=== PATIENT | male | born 1980 | race Hispanic/Latino ===

== ENCOUNTER 2017-11-22 16:05 | Outpatient (CLI) | payer OTHER ==
--- NOTE | 2017-11-22 17:14 | RAD ---
LEFT SHOULDER RADIOGRAPHS THREE VIEWS: 11/22/17 PROVIDED CLINICAL HISTORY: Left shoulder pain. FINDINGS: There is no evidence for fracture or other acute osseous abnormality. Acromioclavicular joint osteoar throsis is noted. The glenohumeral relationship appears normal. The visualized left lung appears jeni r. IMPRESSION: Acromioclavicular joint osteoarthrosis. POS: [facility]
== END 2017-11-22 16:06 | disposition home or self-care (01) ==
LOC: RAD-FRANK 16:05
PROVIDERS: ATTEND Nurse Practitioner Family
DX: S49.92XA Unspecified injury of left shoulder and upper arm, initial encounter (principal); M19.012 Primary osteoarthritis, left shoulder

== ENCOUNTER 2022-11-27 20:30 | Emergency (ER) | payer SELFPAY ==
[~2022-11-27 20:30] MED LIST: Iopamidol-370 76% 500 ML MDV (1 ML CHARGE) ONE
[2022-11-27 21:47] LABS: #Basophils 0.1 thou/uL (0.0-0.2); #Eosinphils 0.1 thou/uL (0.0-0.7); #Monocytes 0.6 thou/uL (0.11-0.59); #Neutrophils 7.6 thou/uL (1.40-6.50); %Basophils 0.5 % (0.0-1.0); %Eosinophils 1.2 % (0.0-10.0); %Lymphocytes 23.5 % (21.0-51.0); %Monocytes 5.2 % (0.0-10.0); %Neutrophils 69.3 % (42.0-75.0); Hematocrit 42.1 % (42.0-52.0); Hemoglobin 13.8 g/dL (14.0-18.0); Mean Corpuscular HGB CONC 32.8 g/dL (32.0-36.0); Mean Corpuscular Hemoglobin 30.5 pg (27.0-31.0); Mean Corpuscular Volume 93.1 fl (78.0-98.0); Mean Platelet Volume 10.1 fL (7.4-10.4); Platelet Count 317 10x3/uL (130-400); RBC Distribution Width 13.4 % (11.5-14.5); Red Blood Cell (RBC) Count 4.52 mill/uL (4.70-6.10)
[2022-11-27 22:05] LABS: PTT 27.1 sec (22.9-36.1); Prothrombin Time 13.8 sec (12.0-14.7)
[2022-11-27 22:06] LABS: D-Dimer Test Less than 0.27 *mcg/mL (0.27-0.43)
[2022-11-27 22:15] LABS: Acetaminophen Less than 10 mcg/mL (10.0-30.0); Alcohol Less than 10.0 mg/dL (Less than 10); Lipase 24 U/L (8-78); Salicylate Less than 8.0 mg/dL (15.0-30.0)
[2022-11-27 22:17] LABS: ALT (SGPT) 22 U/L (8-55); AST (SGOT) 15 U/L (5-34); Albumin 4.5 g/dL (3.5-5.0); Alkaline Phosphatase 111 U/L (40-110); Anion Gap 15 mmol/L (10-20); BUN (Urea Nitrogen) 18 mg/dL (8.9-20.6); Bilirubin, Total 0.3 mg/dL (0.2-1.2); Calc. Creatinine Clearance 0 mL/min (70-130); Calcium 9.6 mg/dL (7.8-10.44); Carbon Dioxide 19 mmol/L (22-29); Chloride 106 mmol/L (98-107); Estimated GFR 108; Globulin 3.2 g/dL (2.4-3.5); Glucose 103 mg/dL (70-105); Potassium 3.4 mmol/L (3.5-5.1); Protein, Total 7.7 g/dL (6.0-8.3); Sodium 137 mmol/L (136-145)
[2022-11-27 22:37] LABS: Troponin I Less than 0.010 ng/mL (< 0.028)
[2022-11-27 23:35] LABS: Bacteria/HPF None Seen HPF (None Seen); Bilirubin Negative (Negative); Blood, Urine Trace (Negative); CAUTI Indications for Culture Alt mental st,lethar; Clarity Clear (Clear); Glucose, Urine (Dipstick) Normal (Negative); Ketone, Urine Negative (Negative); Leukocyte 25 Leu/uL (Negative); Nitrite Negative (Negative); Protein, Urine (Dipstick) Negative (Neg-Trace); RBC/HPF 0-3 HPF (0-3); Specific Gravity, Urine 1.024 (1.002-1.036); Squamous Epithelial 0-3 HPF (0-3); Urobilinogen Normal mg/dL (Less than 2)
[2022-11-27 23:36] LABS: Amphetamine Not Detected (NotDetected); Barbiturates Screen Not Detected (NotDetected); Benzodiazepine Screen Not Detected (NotDetected); Cocaine Metabolite Screen Not Detected (NotDetected); Methadone Not Detected (NotDetected); Methamphetamine Not Detected (NotDetected); Opiate Screen Not Detected (NotDetected); Oxycodone Screen Not Detected (NotDetected); Phencyclidine (PCP) Not Detected (NotDetected); THC/Cannabinoid Screen Not Detected (NotDetected); Tricyclic Screen Not Detected (NotDetected)
[2022-11-27 23:40] LABS: Urine Culture Reflex No No
[2022-11-28] MEDS ORDERED: Ketorolac Tromethamine 30 MG/ML VIAL ONE (00:24)
== END 2022-11-28 00:27 | disposition home or self-care (01) ==
LOC: ERS 20:30
DX: R55 Syncope and collapse (principal); M54.9 Dorsalgia, unspecified
CPT/HCPCS: 36415; 36416; 71045; 71275; 74174; 80053; 80306; 80307; 81001; 83690; 83880; 84443; 84484; 85025; 85379; 85610; 85730; 93005; J1885; Q9967

== ENCOUNTER 2023-07-31 09:37 | Emergency (ER) | payer SELFPAY ==
[2023-07-31 10:32] LABS: #Basophils 0.03 10x3/uL (0.0-0.2); %Basophils 0.3 % (0.0-1.0); %Eosinophils 1.3 % (0.0-10.0); %Lymphocytes 20.1 % (21.0-51.0); %Monocytes 4.5 % (0.0-10.0); %Neutrophils 73.5 % (42.0-75.0); Hematocrit 42.3 % (42.0-52.0); Hemoglobin 14.7 g/dL (14.0-18.0); Mean Corpuscular HGB CONC 34.8 g/dL (32.0-36.0); Mean Corpuscular Hemoglobin 30.1 pg (27.0-31.0); Mean Corpuscular Volume 86.5 fL (78.0-98.0); Mean Platelet Volume 10.5 fL (7.4-10.4); Platelet Count 306 10x3/uL (130-400); RBC Distribution Width 13.2 % (11.5-14.5); Red Blood Cell (RBC) Count 4.89 mill/uL (4.70-6.10)
[2023-07-31 10:49] LABS: ALT (SGPT) 23 U/L (8-55); AST (SGOT) 21 U/L (5-34); Albumin 3.7 g/dL (3.5-5.0); Alkaline Phosphatase 95 U/L (40-110); Anion Gap 16 mmol/L (10-20); BUN (Urea Nitrogen) 16 mg/dL (8.9-20.6); Bilirubin, Total 0.6 mg/dL (0.2-1.2); Calc. Creatinine Clearance 0 mL/min (70-130); Calcium 9.3 mg/dL (7.8-10.44); Carbon Dioxide 21 mmol/L (22-29); Chloride 107 mmol/L (98-107); Estimated GFR 83; Globulin 3.9 g/dL (2.4-3.5); Glucose 148 mg/dL (70-105); Protein, Total 7.6 g/dL (6.0-8.3); Sodium 140 mmol/L (136-145)
[2023-07-31 10:58] LABS: Troponin I Less than 0.010 ng/mL (< 0.028)
[2023-07-31] MEDS ORDERED: Acetaminophen 500 MG TAB ONE (12:21)
[2023-07-31 12:52] LABS: Troponin I Less than 0.010 ng/mL (< 0.028)
== END 2023-07-31 13:33 | disposition home or self-care (01) ==
LOC: EDUNIT# 09:37 → ERS 09:37
DX: J68.9 Unspecified respiratory condition due to chemicals, gases, fumes and vapors (principal)
CPT/HCPCS: 36415; 71045; 80053; 84484; 85025; 93005; 94760; 96374